=== PATIENT | male | born 1985 | race Caucasian/White ===

== ENCOUNTER 2016-09-29 11:57 | Emergency (ER) | payer OTHER ==
[~2016-09-29] VITALS: Ht 185.4 cm; Wt 81.8 kg
[2016-09-29 11:59] VITALS: BP 118/74; PULSE 80; RESP 18; O2SAT 97
--- NOTE | 2016-09-29 12:11 | ED.REPORT ---
HPI-Abd Pain M Under 42 Date of Service Sep 29, 2016 ED Provider: Kylie Elmore History of Present Illness: vomiting blood since this am 3 or 4 times. drank 3 glasses of vodka last evening. will slam water which makes it ok. bright red blood . primary care is in [facility]. attending [employer]. normally healthy some dizziness. had to sit while showering this am. 11/02 Not sure if dizzy if from being hung over. Nursing Notes Stated Complaint: VOMITING BLOOD Chief Complaint: Male Abdominal Pain Allergies: Coded Allergies: No Known Allergies (Unverified , 09/29/16) No Active Prescriptions or Reported Meds General Time Seen by MD: 12:10 Chief Complaint Abdominal pain, Other (vomiting blood) Hx Obtained From: Patient Sudden in Onset?: No Symptom Duration: Since onset Past Medical History Past Medical History Denies: Asthma, Diabetes mellitus Past Surgical History right shoulder, hernia as a child Smoking History Never Smoker Social History Alcohol Use: 1-3 per week Drug Use: Denies drug use Other Social History: Occupation lives with in [place], 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/29/2016 Review of Systems Basic Review of Systems Eyes: Vision NL, No discharge Skin: No bruising, No rash, No itch Psychiatric: Normal thought content Physical Exam Physical Exam Notes: odor of ETOH is noted during exam Initial Vital Signs Vital Signs (First) Date Time Temp Pulse Resp B/P Pulse Ox O2 Delivery O2 Flow Rate FiO2 09/29/16 11:59 36.6 80 18 118/74 97 Initial VS: Reviewed, Vital signs normal Head / Eyes: Atraumatic, Normocephalic, PERRL ENT: Mucous membranes moist, Conjunctiva normal, No scleral icterus Neck: Supple, Non-tender, Full range of motion Lymphatic: No lymphadenopathy Extremities: Vascular intact, Neuro intact, No swelling, No tenderness Skin: Warm, Dry, No cyanosis Neurologic: Alert, Oriented, Nonfocal Psychiatric: Mood/affect normal, Behavior normal, Normal thought content General/Constitutional: Awake, Alert, No acute distress, Well appearing, Well developed, Well hydrated, Well nourished, Cooperative, Not toxic appearing Respiratory / Chest: Atraumatic, Breath sounds NL, Breath sounds = bilat, No respiratory distress Cardiovascular: Heart rate NL, Regular rhythm, Heart sounds NL, No gallop Abdomen: Atraumatic, Soft Tenderness/Guarding/Rebound: Positive: Tender epigastric Back: Atraumatic, Inspection NL, Full range of motion, Painless range of motion Interpretation & Diagnostics Lab Results Interpretation Result Diagram: 09/29/16 1251 09/29/16 1251 Test 09/29/16 12:51 White Blood Count 8.7th/mm3 (3.8-10.1) Red Blood Count 5.22mil/mm3 (4.40-5.80) Hemoglobin 15.1g/dL (13.8-17.2) Hematocrit 43.3% (41.0-50.0) Mean Corpuscular Volume 83.0fL (81-100) Mean Corpuscular Hemoglobin 28.9pg (27.0-35.0) Mean Corpuscular Hemoglobin Concent 34.9% (32.0-37.0) Red Cell Distribution Width 13.0% (12.3-15.4) Platelet Count 259bil/L (150-400) Neutrophils (%) (Auto) 80.9% (40-74) Lymphocytes (%) (Auto) 14.0% (14-46) Monocytes (%) (Auto) 4.4% (4-12) Eosinophils (%) (Auto) 0.3% (0-5) Basophils (%) (Auto) 0.2% (0-3) Sodium Level 137mEq/L (134-144) Potassium Level 4.4mEq/L (3.5-5.2) Chloride Level 101mEq/L (97-108) Carbon Dioxide Level 23mmol/L (18-29) Blood Urea Nitrogen 10mg/dL (6-20) Creatinine 0.83mg/dL (0.76-1.27) Estimat Glomerular Filtration Rate 116mL/min (>59) Glucose Level 105mg/dL (60-99) Calcium Level 9.1mg/dL (8.5-10.1) Total Bilirubin 0.6mg/dL (0.0-1.2) Aspartate Amino Transf (AST/SGOT) 20U/L (0-50) Alanine Aminotransferase (ALT/SGPT) 17U/L (0-44) Alkaline Phosphatase 66U/L (25-150) Total Protein 7.5g/dL (6.4-8.4) Albumin 4.9g/dL (3.4-5.0) Amylase Level 52U/L (28-100) Lipase 25U/L (13-60) Re-Eval/Medical Decision Med Decision/Clinical Course 31 year old male presents for evualation of vomiting blood after drinking ETOH last evening. Patient labs are stable, posturals are normal. Patient with vomiting 3 or 4 times in ER with one time of dark brown blood. Patient vomiting has stopped espicially after phenergan. Head ache is resolved after IV tylenol. Exam is consistent with upper GI bleed, no sign of appendicitis or urinary retention Patient Discharge & Departure Primary Impression: Upper GI bleed Disposition: Home Additional Instructions: Continue with pantroprazole daily. Avoid alcohol. Your labs are normal. There is no sign of pancreatitis. You have had a good response to phenergan, that will be provided. Avoid acid such as orange juice, dark pop, coffee, pepermint, anything that can upset the stomach. If you have the bleeding return, you need to return to the ER. Please follwo with your primary care provider on return to [place]. EDSupervising Provider for APC: Lyle Nina MD, Sue ARNP Sep 29, 2016 12:11
[2016-09-29] MEDS ORDERED: Pantoprazole 4 mg/mL 10 mL Inj IVPUSH ONE (12:20)
[2016-09-29] MEDS ORDERED: 0.9% Sodium Chloride 1,000 ML IV ONE (12:20)
[2016-09-29] MEDS ORDERED: LidocaineVisc 2%:Antacid 1:1 10 mL Syringe PO ONE (12:20)
[2016-09-29] MEDS ORDERED: Ondansetron 2 mg/mL 2 mL Inj IVPUSH ONE ×2 (13:00→15:30)
[2016-09-29 13:13] LABS: BASOPHILS % (AUTO) 0.2 % (0-3); EOSINOPHILS % (AUTO) 0.3 % (0-5); MONOCYTES % (AUTO) 4.4 % (4-12); Mean Corpuscular Hemoglobin 28.9 pg (27.0-35.0); NEUTROPHILS % (AUTO) 80.9 % (40-74); Platelet Count 259 bil/L (150-400)
[2016-09-29 14:07] VITALS: BP 127/72; PULSE 73
[2016-09-29 14:08] VITALS: BP 114/57; PULSE 75
[2016-09-29 14:23] LABS: Lipase 25 U/L (13-60)
[2016-09-29] MEDS ORDERED: Promethazine Inj 12.5 MG in Dextrose 5%-Pha MIX 50 ML IV ONE (15:40)
[2016-09-29] MEDS ORDERED: Acetaminophen IV 1,000 MG in IV Premix 1 EACH IV ONE (15:40)
== END 2016-09-29 17:14 | disposition home or self-care (01) ==
LOC: SED 11:57
DX: K92.2 Gastrointestinal hemorrhage, unspecified (principal)
CPT/HCPCS: 36415; 80053; 82075; 82150; 83690; 85025; 96374; 96375; 96376; 99285; J0131; J2405; J2550; J7030